=== PATIENT | female | born 1970 | race Caucasian/White ===

== ENCOUNTER 2017-12-11 12:21 | Emergency (ER) | payer BC ==
--- NOTE | 2017-12-11 12:54 | EKG REPORT ---
SEVERITY:- BORDERLINE ECG - SINUS RHYTHM PROBABLE LEFT ATRIAL ABNORMALITY : Confirmed by: Jace Fuller MD 11-Dec-2017 12:53:23
[2017-12-11] MEDS ORDERED: ASPIRIN 81 MG TABLET, CHEWABLE PO ONE (13:18)
--- NOTE | 2017-12-11 13:44 | RADIOLOGY REPORT (SQ) ---
EXAM DESCRIPTION: CHEST SINGLE VIEW COMPLETED DATE/TIME: 12/11/2017 1:32 pm REASON FOR STUDY: cp COMPARISON: None. EXAM PARAMETERS: NUMBER OF VIEWS: One view. TECHNIQUE: Single frontal radiographic view of the chest acquired. RADIATION DOSE: NA LIMITATIONS: None. FINDINGS: LUNGS AND PLEURA: No opacities, masses or pneumothorax. No pleural effusion. MEDIASTINUM AND HILAR STRUCTURES: No masses. Contour normal. HEART AND VASCULAR STRUCTURES: Heart normal in size. Normal vasculature. BONES: No acute findings. HARDWARE: None in the chest. OTHER: No other significant finding. IMPRESSION: NO ACUTE RADIOGRAPHIC FINDING IN THE CHEST. TECHNICAL DOCUMENTATION: JOB ID: [id number] [employer]- All Rights Reserved Reading location - IP/workstation name: [id number]
[2017-12-11 13:57] LABS: ABSOLUTE BASOPHILS # (AUTO) 0.1 10^3/uL (0.0-0.2); ABSOLUTE EOSINOPHILS # (AUTO) 0.5 10^3/uL (0.0-0.6); ABSOLUTE LYMPHOCYTES (AUTO) 2.5 10^3/uL (0.5-4.7); ABSOLUTE MONOCYTES (AUTO) 0.5 10^3/uL (0.1-1.4); ABSOLUTE NEUT (AUTO) 4.3 10^3/uL (1.7-8.2); BASOPHILS % (AUTO) 0.7 % (0-2); HEMATOCRIT 45.5 % (36.0-47.0); HEMOGLOBIN 15.5 g/dL (12.0-15.5); LYMPHOCYTES % (AUTO) 31.4 % (13-45); MEAN CORPUSCULAR HEMOGLOBIN 29.8 pg (27.0-33.4); MEAN CORPUSCULAR HGB CONC 34.1 g/dL (32.0-36.0); MEAN CORPUSCULAR VOLUME 88 fl (80-97); MONOCYTES % (AUTO) 6.5 % (3-13); PLATELET COUNT 394 10^3/uL (150-450); SEGMENTED NEUTROPHILS % (AUTO) 55.4 % (42-78); TOTAL CELLS COUNTED % (AUTO) 100 %; WHITE BLOOD COUNT 7.8 10^3/uL (4.0-10.5)
--- NOTE | 2017-12-11 14:11 | ER Document Report ---
ED Respiratory Problem - General Chief Complaint: Chest Tightness Stated Complaint: CHEST PAIN Time Seen by Provider: 12/11/17 14:04 Mode of Arrival: Ambulatory Information source: Patient Notes: History of present illness-46 years old female with no significant fat past medical history while working in [place] suddenly felt like bloating sensation in the chest felt dizzy and almost passing out sensation. Lasted for a few minutes and then disappeared. Currently feeling well no chest pain no shortness of breath. No left arm numbness tingling sensation nausea vomiting palpitation or diaphoresis. But has slight headache on the left side. No focal weakness numbness tingling sensation. Denies constitutional symptoms. REVIEW OF SYSTEMS: CONSTITUTIONAL : Denies fever, chills, or sweats. Denies recent illness. EENT: Denies eye, ear, throat, or mouth pain or symptoms. Denies nasal or sinus congestion or discharge. Denies throat, tongue, or mouth swelling or difficulty swallowing. CARDIOVASCULAR: Denies chest pain. Denies palpitations or racing or irregular heart beat. Denies ankle edema. RESPIRATORY: Denies cough, cold, or chest congestion. Denies shortness of breath, difficulty breathing, or wheezing. GASTROINTESTINAL: Denies abdominal pain or distention. Denies nausea, vomiting , or diarrhea. Denies blood in vomitus, stools, or per rectum. Denies black, tarry stools. Denies constipation. GENITOURINARY: Denies difficulty urinating, painful urination, burning, frequency, blood in urine, or discharge. FEMALE GENITOURINARY: Denies vaginal bleeding, heavy or abnormal periods, irregular periods. Denies vaginal discharge or odor. MUSCULOSKELETAL: Denies back or neck pain or stiffness. Denies joint pain or swelling. SKIN: Denies rash, lesions or sores. HEMATOLOGIC : Denies easy bruising or bleeding. LYMPHATIC: Denies swollen, enlarged glands. NEUROLOGICAL: Denies confusion or altered mental status. Denies passing out or loss of consciousness. Denies dizziness or lightheadedness. Denies headache. Denies weakness or paralysis or loss of use of either side. Denies problems with gait or speech. Denies sensory loss, numbness, or tingling. Denies seizures. PSYCHIATRIC: Denies anxiety or stress. Denies depression, suicidal ideation, or homicidal ideation. ALL OTHER SYSTEMS REVIEWED AND NEGATIVE. PHYSICAL EXAMINATION: GENERAL: Well-appearing, well-nourished and in no acute distress. HEAD: Atraumatic, normocephalic. EYES: Pupils equal round and reactive to light, extraocular movements intact, conjunctiva are normal. ENT: Nares patent, oropharynx clear without exudates. Moist mucous membranes. NECK: Normal range of motion, supple without lymphadenopathy LUNGS: Breath sounds clear to auscultation bilaterally and equal. No wheezes rales or rhonchi. HEART: Regular rate and rhythm without murmurs ABDOMEN: Soft, nontender, nondistended abdomen. No guarding, no rebound. No masses appreciated. Female : deferred Musculoskeletal: Normal range of motion, no pitting or edema. No cyanosis. NEUROLOGICAL: Cranial nerves grossly intact. Normal speech, normal gait. Normal sensory, motor exams PSYCH: Normal mood, normal affect. SKIN: Warm, Dry, normal turgor, no rashes or lesions noted. Dictation was performed using [employer] voice recognition software TRAVEL OUTSIDE OF THE [place] IN LAST 30 DAYS: No - HPI Patient complains to provider of: No: Asthma, Chest pain, CHF, COPD, Cough, Hurts to breath, Short of breath, Other Duration: No: Better, Continuous, Gone now, Intermittent episodes, Worse/ persistent Initiating Event: No: Allergy, Aspiration/Choking, Exertion, Exposure to chemicals, Exposure to dust, Exposure to fumes, Exposure to mold, Exposure to smoke, Out of meds, Sports/exercise, URI, Other Severity: Mild Pain Level: 0 Context: denies: DVT, Factor V Leiden, Hx asthma, Hx CHF, Hx COPD, Malignancy, , Recent cardiac event, Recent foreign travel, Recent long distance trvl , Recent immobilization, Recent surgery, Smoker, Other Chest pain/discomfort: denies: Center, Constant, Heaviness, Intermittent, Left, Pain, Radiates to arm, Radiates to back, Radiates to jaw, Right, Tightness, Worse with deep breaths Cough: denies: Nonproductive, Productive, Stridor, Suspect aspiration Sputum amount: denies: None, Scant, Small, Moderate, Large, Copious Sputum color: denies: Brown, Clear, Creamy, [place], Green, [place] tinged, Red (blood ), Red Specks, Rust, Small Clots, [place], White, Yellow Sputum consistency: denies: Frothy, Mucoid, Mucoid Plug, Tenacious, Thick, Thin At home treatment: denies: Bronchodilators, CPAP, Diuretics, Inhaled steroids, Oral steroids, Oxygen, Singulair, Theophylline - Related Data Allergies/Adverse Reactions: latex [Latex] Allergy (Severe, Verified 12/11/17 12:23) peels skin,rash,hart codeine [Codeine] Allergy (Verified 12/11/17 12:23) hallucinate,itch Penicillins Allergy (Verified 12/11/17 12:23) hives,stop breathing Past Medical History - General Information source: Patient - Social History Smoking Status: Never Smoker Chew tobacco use (# tins/day): No Frequency of alcohol use: None Drug Abuse: None Family History: Reviewed & Not Pertinent Patient has suicidal ideation: No Patient has homicidal ideation: No - Past Medical History Cardiac Medical History: Denies: Hx Coronary Artery Disease, Hx Heart Attack, Hx Hypertension Pulmonary Medical History: Denies: Hx Asthma, Hx Bronchitis, Hx COPD, Hx Pneumonia Neurological Medical History: Denies: Hx Cerebrovascular Accident, Hx Seizures Renal/ Medical History: Denies: Hx Peritoneal Dialysis Musculoskeltal Medical History: Denies Hx Arthritis Past Surgical History: Reports: Hx Gynecologic Surgery - Hysterectomey, Hx Hysterectomy, Hx Orthopedic Surgery - Foot - Immunizations Hx Diphtheria, Pertussis, Tetanus Vaccination: Yes Review of Systems - Review of Systems Constitutional: denies: No symptoms reported, See HPI, Chills, Diaphoresis, Fever, Malaise, Weakness, Other, Weight gain, Weight loss, Recent illness EENT: denies: No symptoms reported, See HPI, Eye pain, Eye discharge, Blurred vision, Tearing, Double vision, Ear pain, Ear discharge, Nose pain, Nose congestion, Nose discharge, Sinus pressure, Sinus discharge, Throat pain, Difficulty swallowing, Throat swelling, Mouth pain, Mouth swelling, Dental problem, Vertigo, Other Cardiovascular: denies: No symptoms reported, See HPI, Chest pain, Palpitations , Heart racing, Orthopnea, Dyspnea, Syncope, Dizziness, Lightheaded, Edema, Other, Paroxysmal Nocturnal Dysp Respiratory: See HPI. denies: No symptoms reported, Cough, Hurts to breathe, Hemoptysis, Short of breath, Sputum, Stridor, Wheezing, Other Gastrointestinal: denies: No symptoms reported, See HPI, Abdomen distended, Abdominal pain, Diarrhea, Nausea, Vomiting, Constipation, Blood streaked bowels , Poor appetite, Poor fluid intake, Blood in vomit, Black stools, Rectal bleeding, Last bowel movement, Fecal incontinence, Other Genitourinary: denies: No symptoms reported, See HPI, Burning, Dysuria, Discharge, Frequency, Flank pain, Hematuria, Incontinence, Pain, Urgency, Retention, Other Female Genitourinary: denies: No symptoms reported, See HPI, Last menstrual period, , Post menopausal, Heavy/abnormal periods, Irregular period, Vaginal bleeding, Vaginal discharge, Vaginal odor, Painful intercourse, Other Musculoskeletal: denies: No symptoms reported, See HPI, Back pain, Gout, Joint pain, Joint swelling, Muscle pain, Muscle stiffness, Neck pain, Deformity, Leg swelling, Ankle swelling, Other Skin: denies: No symptoms reported, See HPI, Change in color, Change in hair/ nails, Dryness, Lesions, Lumps, Rash, Other Hematologic/Lymphatic: denies: No symptoms reported, See HPI, Anemia, Blood clots, Easy bleeding, Easy bruising, Enlarged lymph nodes, Swollen glands, Other Neurological/Psychological: denies: No symptoms reported, See HPI, Confusion, Dementia, Depression, Hallucinations, Anxiety, Homicidal ideation, Sensory change, Weakness, Gait changes, Loss of power, Paralysis, Seizure, Lost consciousness, Headaches, Speech impairment, Numbness, Suicidal ideation, Tingling, Tremor, Other Physical Exam - Vital signs Vitals: Temp Pulse Resp BP Pulse Ox 98.4 F 100 16 109/69 99 12/11/17 12:32 12/11/17 12:32 12/11/17 12:32 12/11/17 12:32 12/11/17 12:32 - Notes Notes: Dictated Course - Re-evaluation Re-evalutation: 12/11/17 15:04 Patient did not have any chest pain or shortness of breath. headache was given Toradol. - Vital Signs Vital signs: Temp Pulse Resp BP Pulse Ox 98.4 F 100 15 106/71 100 12/11/17 12:32 12/11/17 12:32 12/11/17 14:01 12/11/17 14:01 12/11/17 14:01 - Laboratory Result Diagrams: 12/11/17 13:40 12/11/17 13:40 Laboratory results interpreted by me: 12/11/17 13:40 Total Protein 8.3 H - Diagnostic Test Radiology reviewed: Reports reviewed - Chest x-ray reported by radiologist as normal - EKG Interpretation by Me EKG shows normal: Sinus rhythm, [place] - Normal Rate: Normal Rhythm: NSR - No acute ST-T wave changes Discharge - Discharge Clinical Impression: Shortness of breath, Headache Condition: Fair Disposition: HOME, SELF-CARE Instructions: Headache ([facility]) Prescriptions: Ketorolac Tromethamine [Toradol 10 mg Tablet] 10 mg PO Q8HP PRN #14 tablet PRN Reason:
[2017-12-11 14:13] LABS: ALANINE AMINOTRANSFERASE 30 U/L (9-52); ALBUMIN 4.7 g/dL (3.5-5.0); ALKALINE PHOSPHATASE 75 U/L (38-126); ANION GAP 14 (5-19); ASPARTATE AMINO TRANSFERASE 29 U/L (14-36); BILIRUBIN,DIRECT 0.3 mg/dL (0.0-0.4); BILIRUBIN,TOTAL 0.5 mg/dL (0.2-1.3); BLOOD UREA NITROGEN 7 mg/dL (7-20); CALCIUM 10.1 mg/dL (8.4-10.2); CARBON DIOXIDE 28 mmol/L (22-30); CHLORIDE 102 mmol/L (98-107); CREATINE KINASE 86 U/L (30-135); GLUCOSE 93 mg/dL (75-110); POTASSIUM 4.3 mmol/L (3.6-5.0); SODIUM 143.9 mmol/L (137-145); TOTAL PROTEIN 8.3 g/dL (6.3-8.2)
[2017-12-11 14:25] LABS: CREATINE KINASE MB 0.85 ng/mL (<4.55); TROPONIN I < 0.012 ng/mL
[2017-12-11] MEDS ORDERED: KETOROLAC TROMETHAMINE 60 MG/2 ML SDV IM ONE (15:04)
[2017-12-11 15:34] VITALS: BP 101/70
== END 2017-12-11 15:34 | disposition home or self-care (01) ==
LOC: ER 12:21
DX: R07.9 Chest pain, unspecified (principal); R06.02 Shortness of breath; R51 Headache; Z90.710 Acquired absence of both cervix and uterus; Z88.0 Allergy status to penicillin; Z88.6 Allergy status to analgesic agent; Z91.040 Latex allergy status
CPT/HCPCS: 93005; 99285; 96372; 36415; 82553; 82550; 85025; 80053; 84484; 71045; 93010; J1885